=== PATIENT | female | born 1940 | race Caucasian/White ===

== ENCOUNTER 2023-11-27 22:25 | Inpatient (IN) | payer MEDICARE ==
[2023-11-28] MEDS ORDERED: Ondansetron ODT 4 MG TAB PO PRN (01:15)
[2023-11-28] MEDS ORDERED: Ondansetron PF 4 MG/2 ML Vial IVP PRN (01:15)
[2023-11-28 06:23] LABS: #Basophils 0.06 10x3/uL (0.0-0.2); %Basophils 0.7 % (0.0-1.0); %Eosinophils 2.8 % (0.0-10.0); %Lymphocytes 31.4 % (21.0-51.0); %Monocytes 7.7 % (0.0-10.0); %Neutrophils 57.2 % (42.0-75.0); Hematocrit 41.8 % (36.0-47.0); Hemoglobin 13.5 g/dL (12.0-16.0); Mean Corpuscular HGB CONC 32.3 g/dL (32.0-36.0); Mean Corpuscular Hemoglobin 32.5 pg (27.0-31.0); Mean Corpuscular Volume 100.5 fL (78.0-98.0); Mean Platelet Volume 12.2 fL (7.4-10.4); Platelet Count 228 10x3/uL (130-400); RBC Distribution Width 14.6 % (11.5-14.5); Red Blood Cell (RBC) Count 4.16 mill/uL (4.20-5.40)
[2023-11-28 06:26] LABS: Chloride 106 mmol/L (98-107); Potassium 3.6 mmol/L (3.5-5.1)
[2023-11-28 06:27] LABS: Calcium 9.2 mg/dL (7.8-10.44); Glucose 88 mg/dL (83-110)
[2023-11-28 06:29] LABS: Anion Gap 14 mmol/L (10-20); Carbon Dioxide 26 mmol/L (23-31)
[2023-11-28 06:31] LABS: BUN (Urea Nitrogen) 18 mg/dL (9.8-20.1); Calc. Creatinine Clearance 60 mL/min (70-130); Estimated GFR 60
[2023-11-28 06:33] LABS: Sodium 142 mmol/L (136-145)
[2023-11-28] MEDS: Famotidine 20 MG TAB PO SCH (08:33)
[2023-11-28] MEDS: Famotidine/PF 20 mg/2ml Vial SLOW IVP SCH (08:34)
[2023-11-28 09:00] LABS: Hemoglobin A1c 5.7 % (4.0-6.0)
[2023-11-28 09:07] LABS: Cardiac Risk 3.4 (Less than 4.5)
[2023-11-28] MEDS: Atorvastatin Calcium 40 MG TAB PO SCH (21:00)
[2023-11-29] MEDS: Lidocaine 2% Viscous Solution 10 ML, Aluminum & Magnesium Hydroxide 30 ML SSW SCH (03:48)
[2023-11-29] MEDS: Acetaminophen 325 MG TAB PO PRN (03:49)
[2023-11-29] MEDS: Aspirin 325 mg Enteric Coated Tablet PO SCH (10:08)
[2023-11-30] MEDS ORDERED: hydrALAZINE 20 MG/ML VIAL SLOW IVP PRN (00:23)
[2023-11-30 01:24] VITALS: BMI 30.2
[2023-11-30 08:12] VITALS: TEMP 98
[2023-11-30] MEDS: Senokot S 8.6-50 MG TAB PO PRN (09:24)
[2023-11-30] MEDS: Amlodipine 10 MG TAB PO SCH (09:24)
[2023-11-30 11:56] VITALS: BP 184/79
== END 2023-11-30 15:22 | disposition home or self-care (01) | DRG 69 ==
LOC: 2SE 23:46 → OBSVTOIN 11-29 10:38
PROVIDERS: ADMIT Student in an Organized Health Care Education/Training Program; ATTEND Internal Medicine
DX: G45.9 Transient cerebral ischemic attack, unspecified (principal); E78.5 Hyperlipidemia, unspecified; R42 Dizziness and giddiness; I10 Essential (primary) hypertension; J44.9 Chronic obstructive pulmonary disease, unspecified; Z87.891 Personal history of nicotine dependence; Z90.710 Acquired absence of both cervix and uterus; Z90.10 Acquired absence of unspecified breast and nipple; Z86.73 Personal history of transient ischemic attack (TIA), and cerebral infarction without residual deficits; Z88.0 Allergy status to penicillin; Z88.8 Allergy status to other drugs, medicaments and biological substances
CPT/HCPCS: 36415; 70551; 80048; 80061; 83036; 85025; 93306; 93880; G0378